=== PATIENT | male | born 1955 | race Caucasian/White ===

== ENCOUNTER → 2016-05-15 | Outpatient (CLI) | payer OTHER ==
[~2016-05-15] VITALS: Ht 175.3 cm; Wt 81.6 kg
[~2016-05-15] MED LIST: ASPIR 8181 MG PO; BRILINTA90 MG PO; CHANTIX0.5 MG PO; FENOFIBRATE160 MG PO; LASIX 40 MG TAB40 MG PO; LISINOPRIL2.5 MG PO; LISINOPRIL5 MG PO; METOPROLOL TART50 MG PO; NICOTINE PATCH1 EAC5 TD; NITROSTAT 0.40.4 MG SL; PLAVIX 75 MG TA75 MG PO; TRICOR 145 MG145 MG PO
[2016-05-15 07:51] LABS: HEMOGLOBIN 14.3 gm/dl (14.0-17.5); RED BLOOD COUNT 4.26 M/UL (4.20-5.50); WHITE BLOOD COUNT 6.8 K/UL (4.5-11.0)
[2016-05-15 08:24] LABS: BUN/CREATININE RATIO 16 (0-10)
== END | disposition home or self-care (01) ==
LOC: CATH 05-13 07:30
PROVIDERS: Internal Medicine Cardiovascular Disease
DX: I70.213 Atherosclerosis of native arteries of extremities with intermittent claudication, bilateral legs (principal); I70.92 Chronic total occlusion of artery of the extremities; I70.0 Atherosclerosis of aorta; I10 Essential (primary) hypertension; R94.39 Abnormal result of other cardiovascular function study; I42.9 Cardiomyopathy, unspecified; I20.8 Other forms of angina pectoris; E78.5 Hyperlipidemia, unspecified; M79.606 Pain in leg, unspecified; R06.02 Shortness of breath; Z79.82 Long term (current) use of aspirin; Z79.02 Long term (current) use of antithrombotics/antiplatelets; Z79.899 Other long term (current) drug therapy; F17.210 Nicotine dependence, cigarettes, uncomplicated
CPT/HCPCS: 36245; 36415; 37252; 75630; 80048; 85025; 85347; 85610; 85730; C1753; C1769; C1876; C2623; J1644; J2250; J3010; J7030; Q0163; Q9965